=== PATIENT | female | born 1965 | race Caucasian/White ===

== ENCOUNTER 2021-11-18 13:18 | Emergency (ER) | payer OTHER, SELFPAY ==
[2021-11-18 13:39] VITALS: BP 120/73; PULSE 67; RESP 16; TEMP 36.1; O2SAT 98; BMI 40.8
--- NOTE | 2021-11-18 13:59 | DI.RAD.S_ITS ---
PROCEDURE: XR LUMBAR SPINE 2-3V INDICATIONS: fall monday TECHNIQUE: 2 views of the lumbar spine were acquired. COMPARISON: None. FINDINGS: Bones: 5 wzp-[id number]-yuvcfct vertebrae are present. There is 4.5 mm anterolisthesis of L4 on L5. Degenerative endplate changes and bilateral facet arthropathy throughout lumbar spine is seen. No vertebral body compression fractures. No suspicious bony lesions. Soft tissues: Overlying bowel gas pattern is normal. No suspicious soft tissue calcifications. IMPRESSION: Grade 1 anterolisthesis of L4 on L5. No acute compression fracture. Degenerative disc disease throughout lower thoracic and lumbar spine. Dictated by: Ray Dasilva M.D. on 11/18/2021 at 14:46 Approved by: Ray Dasilva M.D. on 11/18/2021 at 14:50
--- NOTE | 2021-11-18 13:59 | DI.RAD.S_ITS ---
PROCEDURE: XR PELVIS 1-2V INDICATIONS: fall monday TECHNIQUE: 1 view(s) of the pelvis acquired. COMPARISON: None. FINDINGS: Bones: No fractures or dislocations. Osteoarthritic changes throughout bony pelvis is seen. No evidence of avascular necrosis of femoral head. No suspicious bony lesions. Soft tissues: Visualized bowel gas pattern is normal. No suspicious soft tissue calcifications. IMPRESSION: No acute pelvic fracture or dislocation. Osteoarthritis throughout bony pelvis. Dictated by: Ray Dasilva M.D. on 11/18/2021 at 14:46 Approved by: Ray Dasilva M.D. on 11/18/2021 at 14:46
--- NOTE | 2021-11-18 15:43 | ED_ITS ---
HPI - Fall <Brendon Byrd PA-C - Last Filed: 11/18/21 16:50> General Chief Complaint: Fall Stated Complaint: Fell backwards- hit head, shoulder, buttocks Time Seen by Provider: 11/18/21 15:37 History of Present Illness HPI Narrative: This is a 56-year-old female presents to the emergency department due to a head injury as well as a buttock injury 1 week ago. Patient states that she was lifting something up when the wooden pallets not causing her to fall on her buttocks and hit her head on the cement. Reports a loss of consciousness. Patient states that ?words seem fuzzy? as well as mild nausea over the last week. She reports primarily buttock and lumbar pain. Related Data Allergies Allergy/AdvReac Type Severity Reaction Status Date / Time ciprofloxacin Allergy Hives Verified 11/18/21 13:51 Penicillins Allergy Hives Verified 11/18/21 13:51 latex AdvReac Rash Verified 11/18/21 13:51 Review of Systems <Brendon Byrd PA-C - Last Filed: 11/18/21 16:50> Review of Systems Narrative: GENERAL: Denies chills, fatigue, malaise, fever, sweats. HEENT: Denies sinus pain, ear pain, sore throat, difficulty swallowing, dizziness. RESPIRATORY: Denies dyspnea, cough, wheezing, hemoptysis, sputum. CARDIOVASCULAR: Denies chest pain, palpitations, orthopnea, edema, GASTROINTESTINAL: Reports nausea, denies vomiting, abdominal pain, diarrhea, constipation, melena. : Denies dysuria, frequency, incontinence, hematuria, urinary retention. MUSCULOSKELETAL: Lumbar and buttock pain SKIN: Denies rash, skin lesions, or other NEUROLOGIC: Denies weakness, headache, numbness, change in speech, confusion, seizures, incoordination. PSYCHIATRIC: No concerning psychosocial issues. 12 point review of systems is negative except for those stated above Patient History <JM Gallegos Last Filed: 11/18/21 16:50> Social History Smoking Status: Former smoker Smoking Status: Former smoker alcohol intake frequency: a few times a week Alcohol type: wine Substance Use Type: does not use Exam <JM Gallegos Last Filed: 11/18/21 16:50> Narrative Exam Narrative: GENERAL: Well-developed patient, in mild distress. HEAD: Atraumatic. Normocephalic. EYES: Pupils equal round and reactive. Extraocular motions intact. No scleral icterus. No injection or drainage. ENT: Nose without bleeding, purulent drainage. Throat without erythema, tonsill ar hypertrophy or exudate. Airway patent. NECK: Trachea midline. Non tender CARDIOVASCULAR: Regular rate and rhythm without murmurs, gallops, or rubs. RESPIRATORY: Clear to auscultation. Breath sounds equal bilaterally. No wheezes, rales, or rhonchi. GASTROINTESTINAL: Abdomen soft, non-tender, nondistended. EXTREMITIES: No edema or joint tenderness. BACK: Tenderness to palpation of bilateral buttocks as well as left lumbar paraspinal area NEURO: AOx3. Cranial nerves 2-12 intact SKIN: No rash or erythema of visible areas Initial Vital Signs Initial Vital Signs: Vital Signs Temperature 97.0 F L 11/18/21 13:39 Pulse Rate 67 11/18/21 13:39 Respiratory Rate 16 11/18/21 13:39 Blood Pressure 120/73 11/18/21 13:39 Pulse Oximetry 98 11/18/21 13:39 <Melissa Cobb DO - Last Filed: 11/18/21 20:26> Initial Vital Signs Initial Vital Signs: Vital Signs Temperature 97.0 F L 11/18/21 13:39 Pulse Rate 67 11/18/21 13:39 Respiratory Rate 16 11/18/21 13:39 Blood Pressure 120/73 11/18/21 13:39 Pulse Oximetry 98 11/18/21 13:39 Course <Brendon Byrd PA-C - Last Filed: 11/18/21 16:50> Orders Ordered: ED Orders 11/18/21 13:59 XR lumbar spine 2-3V Stat XR pelvis 1-2V Stat 11/18/21 15:56 CT head/brain wo con Stat Discontinued Medications Ketorolac Tromethamine (Ketorolac 30 Mg/Ml Vial) 15 mg IM NOW ONE Stop: 11/18/21 16:43 Last Admin: 11/18/21 16:53 Dose: 15 mg Documented by: BOBBYHOJUWAN Vital Signs Vital signs: Vital Signs - 8 hr 11/18/21 13:39 11/18/21 17:01 Temperature 97.0 F L Pulse Rate 67 65 Respiratory Rate 16 16 Blood Pressure 120/73 129/77 Pulse Oximetry 98 99 <Melissa Cobb DO - Last Filed: 11/18/21 20:26> Orders Ordered: ED Orders 11/18/21 13:59 XR lumbar spine 2-3V Stat XR pelvis 1-2V Stat 11/18/21 15:56 CT head/brain wo con Stat Discontinued Medications Ketorolac Tromethamine (Ketorolac 30 Mg/Ml Vial) 15 mg IM NOW ONE Stop: 11/18/21 16:43 Last Admin: 11/18/21 16:53 Dose: 15 mg Documented by: AUBREY Vital Signs Vital signs: Vital Signs - 8 hr 11/18/21 13:39 11/18/21 17:01 Temperature 97.0 F L Pulse Rate 67 65 Respiratory Rate 16 16 Blood Pressure 120/73 129/77 Pulse Oximetry 98 99 MDM - Fall <Brendon Byrd PA-C - Last Filed: 11/18/21 16:50> Imaging Data Lumbar x-ray: Radiologist's Impression: [address] [address] XRay Report Signed Patient: Alexandr Wall MR#: [id number] : 1965 Acct:[id number] Age/Sex: 56 / F Date of Service: 11/18/21 Loc: ED Accession Number: [id number] ?? Procedure: XR lumbar spine 2-3V Ordering Provider: Melissa Cobb D.O. PROCEDURE:? XR LUMBAR SPINE 2-3V ? INDICATIONS:? fall monday ? TECHNIQUE:? 2 views of the lumbar spine were acquired.? ? COMPARISON:? None. ? FINDINGS:? ? Bones:? 5 aaz-lzm-mkkxene vertebrae are present.? There is 4.5 mm anterolisthesis of L4 on L5.? Degenerative endplate changes and bilateral facet arthropathy throughout lumbar spine is seen.? No vertebral body compression fractures.? No suspicious bony lesions.? ? Soft tissues:? Overlying bowel gas pattern is normal.? No suspicious soft tissue calcifications.? ? ? IMPRESSION:? Grade 1 anterolisthesis of L4 on L5.? No acute compression fracture.? Degenerative disc disease throughout lower thoracic and lumbar spine. ? ? Dictated by: Ray Dasilva M.D. on 11/18/2021 at 14:46 ? ? Approved by: Ray Dasilva M.D. on 11/18/2021 at 14:50 ? pelvic x-ray: Radiologist's Impression: PROCEDURE: XR PELVIS 1-2V INDICATIONS: fall monday TECHNIQUE: 1 view(s) of the pelvis acquired. COMPARISON: None. FINDINGS: Bones: No fractures or dislocations. Osteoarthritic changes throughout bony pelvis is seen. No evidence of avascular necrosis of femoral head. No suspicious bony lesions. Soft tissues: Visualized bowel gas pattern is normal. No suspicious soft tissue calcifications. IMPRESSION: No acute pelvic fracture or dislocation. Osteoarthritis throughout bony pelvis. Dictated by: Ray Dasilva M.D. on 11/18/2021 at 14:46 Approved by: Ray Dasilva M.D. on 11/18/2021 at 14:46 CT scan - head: Radiologist's Impression: [address] [id number] Scan ReportSigned Patient: Alexandr Wall AMR#: [id number]: 1965Acct:[id number]/Sex: 56 / FDate of Service: 11/18/21Loc: EDAccession Number: [id number] Procedure: CT head/brain wo con Ordering Provider: Brendon Byrd P.A-C PROCEDURE: CT HEAD/BRAIN WO CON INDICATIONS: Head trauma and LOC TECHNIQUE: Noncontrast 4.5 mm thick angled axial sections acquired from the foramen magnum to the vertex, with coronal and sagittal reformats. For radiation dose reduction, the following was used: automated exposure control, adjustment of mA and/or kV according to patient size. COMPARISON: None. FINDINGS: Image quality: Excellent. CSF spaces: Basal cisterns are patent. No extra-axial fluid collections. The ventricles are symmetric in size and shape. Brain: No intracranial bleeds or masses. There is cerebral volume loss for age, with resultant ventricular and sulcal prominence. There are periventricular and deep white matter chronic small vessel ischemic changes. There is intracranial internal carotid artery atherosclerosis. Skull and face: Calvarium and visualized facial bones appear intact, without suspicious lesions. Sinuses: Visualized sinuses and mastoids are clear. IMPRESSION: No acute finding. Dictated by: Lv Saldana M.D. on 11/18/2021 at 16:24 Approved by: Lv Saldana M.D. on 11/18/2021 at 16:24 MDM Narrative Medical decision making narrative: 56-year-old female presents to the emergency department due to an injury to her head and buttocks and hips approximately a week ago. Head CT ordered due to loss of consciousness. Patient's x-rays were all negative for fracture and CT head was unremarkable. Suspect concussion and recommended conservative measures. Patient is 18 or older, presenting with minor blunt head trauma. Head CT (including cosigned orders) was ordered by an emergency manager long term care for trauma because the patient: sustained loss of consciousness Discharge Plan Departure Patient Disposition: Home Clinical Impression: Syncope, Concussion Instructions: DI for Concussion Activity Restrictions/Additional Instructions: Thank you for coming to the [facility] Emergency Department today. Your head CT showed no evidence of intracranial bleed. I suspect of a concussion. Please read the attached information. Your x-rays were also negative for any acute fractures. Please use ibuprofen Tylenol for the pain. I hope you feel better soon. Visit Report Forms: Patient Portal/API <Melissa Cobb DO - Last Filed: 11/18/21 20:26> Cosign ED Attending Sky Attestation: I was immediately available in the department for consultation. Documentation has been reviewed.
--- NOTE | 2021-11-18 15:56 | DI.CT.S_ITS ---
PROCEDURE: CT HEAD/BRAIN WO CON INDICATIONS: Head trauma and LOC TECHNIQUE: Noncontrast 4.5 mm thick angled axial sections acquired from the foramen magnum to the vertex, with coronal and sagittal reformats. For radiation dose reduction, the following was used: automated exposure control, adjustment of mA and/or kV according to patient size. COMPARISON: None. FINDINGS: Image quality: Excellent. CSF spaces: Basal cisterns are patent. No extra-axial fluid collections. The ventricles are symmetric in size and shape. Brain: No intracranial bleeds or masses. There is cerebral volume loss for age, with resultant ventricular and sulcal prominence. There are periventricular and deep white matter chronic small vessel ischemic changes. There is intracranial internal carotid artery atherosclerosis. Skull and face: Calvarium and visualized facial bones appear intact, without suspicious lesions. Sinuses: Visualized sinuses and mastoids are clear. IMPRESSION: No acute finding. Dictated by: Lv Saldana M.D. on 11/18/2021 at 16:24 Approved by: Lv Saldana M.D. on 11/18/2021 at 16:24
[2021-11-18] MEDS: KETOROLAC 30 MG/ML VIAL 15 MG IM (16:53)
[2021-11-18 17:01] VITALS: BP 129/77; PULSE 65; RESP 16; O2SAT 99
== END 2021-11-18 17:10 | disposition home or self-care (01) ==
PROVIDERS: Emergency Provider Physician Assistant Medical
DX: S06.0X1A Concussion with loss of consciousness of 30 minutes or less, initial encounter (principal); M54.50 Low back pain, unspecified; W01.198A Fall on same level from slipping, tripping and stumbling with subsequent striking against other object, initial encounter; Y99.0 Civilian activity done for income or pay
CPT/HCPCS: 70450; 72100; 72170; 96372; 99283; J1885

== ENCOUNTER → 2022-01-17 19:31 | Outpatient (CLI) | payer OTHER, SELFPAY ==
--- NOTE | 2022-01-17 | DI.MRI.S_ITS ---
PROCEDURE: MR LUMBAR SPINE WO CON INDICATIONS: Radiculopathy, lumbar region TECHNIQUE: Noncontrast sagittal T1 spin echo and T2 fast echo, sagittal STIR, and T2 fast spin echo through the lumbar spine. In cases with scoliosis, additional coronal T2 fast spin echo may be performed. COMPARISON: [facility], CR, XR LUMBAR SPINE 2-3V, 11/18/2021, 13:51. FINDINGS: Image quality: Excellent. Alignment and Curvature: There is minimal retrolisthesis seen at L1-L2. Bone Marrow: Marrow is of normal overall signal. Scattered foci are seen, which are hyperintense on T1-weighted and T2-weighted imaging, which are most consistent with benign vertebral body hemangiomas. No acute vertebral body compression fractures. Spinal Cord: Conus medullaris terminates at the L1 level. Visualized cord demonstrates normal signal and size. Paraspinous Soft Tissues: No paravertebral masses. T12-L1: Moderate loss of disc height is seen. Loss of disc signal is seen. Mild generalized disc bulge is seen. No significant neural foraminal or central canal narrowing can be seen. Note is made apparent perineural cysts involving the exit foramina at this level. L1-L2: Moderate loss of disc height is seen. Loss of disc signal is seen. Mild generalized disc bulge is seen. There is vesm-rr-foyuarnc left-sided and no right-sided neural foraminal narrowing. No significant central canal narrowing is seen. L2-L3: No significant abnormality is seen. L3-L4: The disc height and disc signal are relatively well preserved. Mild disc bulge is seen, which is eccentric to the right. Mild facet joint hypertrophy is seen. No significant neural foraminal or central canal narrowing can be seen. L4-L5: The disc height is well-preserved. Loss of disc signal is seen at this level. Moderate generalized disc bulge is seen. Moderate to prominent facet hypertrophy is seen. Mild bilateral neural foraminal narrowing is seen. Minimal central canal narrowing is seen. L5-S1: The disc height is well-preserved. Loss of disc signal is seen at this level. Mild generalized disc bulge is seen. There is a focal annular fissure seen posteriorly, as on series 4, image 7. Moderate facet joint hypertrophy is seen. No significant neural foraminal or central canal narrowing can be seen. IMPRESSION: Multiple levels of lumbar spine degenerative change are seen. There is an annular fissure seen posteriorly at the L5-S1 level. Incidental note is made of: Apparent perineural cysts at the exit foramina at the T12-L1 level. Dictated by: Franck Beatty M.D. on 01/18/2022 at 8:37 Approved by: Franck Beatty M.D. on 01/18/2022 at 8:41
== END ==
PROVIDERS: PCP Family Medicine
DX: M47.26 Other spondylosis with radiculopathy, lumbar region (principal); M47.27 Other spondylosis with radiculopathy, lumbosacral region; G96.191 Perineural cyst
CPT/HCPCS: 72148

== ENCOUNTER 2022-03-13 15:38 | Emergency (ER) | payer OTHER, SELFPAY ==
[2022-03-13 16:13] VITALS: BP 128/66; PULSE 74; RESP 19; TEMP 36.3; O2SAT 98; BMI 39.4
--- NOTE | 2022-03-13 16:21 | DI.RAD.S_ITS ---
PROCEDURE: XR RIBS LT MIN 3V W CXR1V INDICATIONS: fall TECHNIQUE: 4 views of the left ribs were acquired, along with a single view chest. COMPARISON: None. FINDINGS: Surgical changes and devices: A left abdominal laparoscopic anchors can be seen. Bones and chest wall: No fractures or dislocations. No suspicious bony lesions. Age-appropriate bony degenerative changes are seen. Overlying soft tissues appear unremarkable. Lungs and pleura: No pleural effusions or pneumothorax. Lungs appear clear. Mediastinum: Mediastinal contours appear normal. Heart size is normal. IMPRESSION: No displaced rib fracture is seen. No pneumothorax. Dictated by: Franck Beatty M.D. on 03/13/2022 at 15:44 Approved by: Franck Beatty M.D. on 03/13/2022 at 15:46
--- NOTE | 2022-03-13 19:49 | ED_ITS ---
HPI - Fall General Chief Complaint: Fall Stated Complaint: fell/left side/rib injury severe pain Time Seen by Provider: 03/13/22 19:36 Source: patient Mode of arrival: Family Vehicle Limitations: no limitations History of Present Illness HPI Narrative: 56-year-old female who has a history of rectal cancer is not currently undergoing any therapy is here for evaluation of left-sided chest discomfort. States she was on a hike. She lost her footing and fell forward. She landed with her left arm tucked up against the left side of her chest and her full body weight landed on this area. She immediately thought that she had fractured a rib. Has had pain with coughing and touching the area and breathing since then. She reports no other injuries from the fall. She went home and the symptoms worsened so she came to the emergency department for an x-ray. Related Data Previous Rx's Medication Instructions Recorded hydrocodone 5 mg-acetaminophen 325 1 tab PO Q4-6H PRN pain #10 tabs 03/13/22 mg tablet Allergies Allergy/AdvReac Type Severity Reaction Status Date / Time ciprofloxacin Allergy Hives Verified 03/13/22 16:13 Penicillins Allergy Hives Verified 03/13/22 16:13 latex AdvReac Rash Verified 03/13/22 16:13 Review of Systems Constitutional Constitutional: Reports system reviewed and no additional complaints, except as documented Cardiovascular Cardiovascular: Reports system reviewed and no additional complaints, except as documented Respiratory Respiratory: Reports system reviewed and no additional complaints, except as documented Gastrointestinal Gastrointestinal: Reports system reviewed and no additional complaints, except as documented Musculoskeletal Musculoskeletal: Reports system reviewed and no additional complaints, except as documented Integumentary/Breasts Skin/Breast: Reports system reviewed and no additional complaints, except as documented Hematologic/Lymphatic On Anticoagulants: No Patient History Medical History Rectal cancer Social History Smoking Status: Former smoker Smoking Status: Former smoker tobacco type: cigarettes alcohol intake frequency: a few times a week Alcohol type: wine Substance Use Type: does not use Exam Initial Vital Signs Initial Vital Signs: Vital Signs Temperature 97.3 F L 03/13/22 16:13 Pulse Rate 74 03/13/22 16:13 Respiratory Rate 19 03/13/22 16:13 Blood Pressure 128/66 03/13/22 16:13 Pulse Oximetry 98 03/13/22 16:13 Oxygen Delivery Method 03/13/22 16:13 HENNH Head: normal to inspection and normocephalic Chest Other: Discomfort left anterior chest wall under the left breast. No crepitus felt. Resp Effort & Inspection: normal respiratory effort Auscultation: clear to auscultation bilaterally Cardio Rate: regular rate Rhythm: regular rhythm Skin General: no rashes or lesions noted Neuro General: patient alert, patient awake and moves all extremities Extrem General: normal to inspection and capillary refill normal Psych Appearance: grossly normal and well kempt Course Orders Ordered: ED Orders 03/13/22 16:21 XR ribs LT min 3V w CXR1V Stat Discontinued Medications Hydrocodone Bitart/Acetaminophen (Hydrocodone/Acet 5/325 Tablet) 1 tab PO NOW ONE Stop: 03/13/22 19:50 Hydrocodone Bitart/Acetaminophen (Hydrocodone/Acet 5/325 Prepack) 1 bottle MISC SEEINSTR ONE Stop: 03/13/22 19:50 Vital Signs Vital signs: Vital Signs - 8 hr 03/13/22 16:13 Temperature 97.3 F L Pulse Rate 74 Respiratory Rate 19 Blood Pressure 128/66 Pulse Oximetry 98 Oxygen Delivery Method Room Air MDM - Fall Imaging Data rib x-ray: Radiologist's Impression: [address] [address] XRay Report Signed Patient: Alexandr Wall MR#: [id number] : 1965 Acct:[id number] Age/Sex: 56 / F Date of Service: 03/13/22 Loc: ED Accession Number: [id number] ?? Procedure: XR ribs LT min 3V w CXR1V Ordering Provider: Perla Robertson MD PROCEDURE:? XR RIBS LT MIN 3V W CXR1V ? INDICATIONS:? fall ? TECHNIQUE:? 4 views of the left ribs were acquired, along with a single view chest.? ? COMPARISON:? None. ? FINDINGS:? ? Surgical changes and devices:? A left abdominal laparoscopic anchors can be seen. ? Bones and chest wall:? No fractures or dislocations.? No suspicious bony lesions.? Age-appropriate bony degenerative changes are seen.? Overlying soft tissues ap pear unremarkable.? ? Lungs and pleura:? No pleural effusions or pneumothorax.? Lungs appear clear.? ? Mediastinum:? Mediastinal contours appear normal.? Heart size is normal.? IMPRESSION:? No displaced rib fracture is seen. ? No pneumothorax. ? ? Dictated by: Franck Beatty M.D. on 03/13/2022 at 15:44 ? ? Approved by: Franck Beatty M.D. on 03/13/2022 at 15:46 MDM Narrative Medical decision making narrative: Only injury from the event as discomfort to her left anterior chest wall. She did not hit her head. No loss of conscious. X-ray shows no displaced fracture. Informed the patient that she is either fractured her ribs and it is not apparent on the x-ray or she is just bruised her ribs. We discussed treatment for both of these. Was sent home with pain medication. She was given return precautions and follow-up instructions. She expressed understanding and agreement. Discharge Plan Departure Patient Disposition: Home Clinical Impression: Rib pain on left side Instructions: DI for Rib Contusion Activity Restrictions/Additional Instructions: Use the pain medication as needed. You may have to put pressure over the area when you cough or sneeze for the next several days. Be sure that your taking deep breaths regularly. Contact your primary doctor for follow-up. Return to the emergency department for any new or worsening symptoms. Prescriptions: New hydrocodone-acetaminophen 5-325 mg tablet 1 tab PO Q4-6H PRN (Reason: pain) Qty: 10 0RF Referrals: Kenny Mcmahan MD [Primary Care Provider] - Stand Alone Forms: Work Release Note
[2022-03-13] MEDS: HYDROCODONE/ACET 5/325 TABLET 1 TAB PO (19:57)
[2022-03-13] MEDS: HYDROCODONE/ACET 5/325 PREPACK 1 BOTTLE MISC (19:57)
== END 2022-03-13 20:04 | disposition home or self-care (01) ==
PROVIDERS: Emergency Provider Emergency Medicine; PCP Family Medicine
DX: R07.81 Pleurodynia (principal); W18.30XA Fall on same level, unspecified, initial encounter; Y93.01 Activity, walking, marching and hiking
CPT/HCPCS: 71101; 99283

== ENCOUNTER → 2022-03-21 15:44 | Outpatient (CLI) | payer OTHER, SELFPAY ==
--- NOTE | 2022-03-21 16:04 | DI.MRI.S_ITS ---
PROCEDURE: MR PELIS WO/W CON INDICATIONS: chronic low back pain, anal cancer TECHNIQUE: Coronal HASTE, sagittal T2 FSE, axial T1 FSE, axial and coronal nonbreath-hold T2 FSE. Axial dynamic VIBE during administration of contrast. Post-contrast axial and coronal VIBE/2-D FLASH with fat saturation from the iliac crests to the symphysis. 10 cc ProHance IV contrast. COMPARISON: [facility], CR, XR PELVIS 1-2V, 11/18/2021, 13:51. FINDINGS: Image quality: Excellent. Anus: There is T2 hypointense signal in the right semi circumferential anus, (/30). This is most consistent with fibrosis related to treatment change. No suspicious enhancement. Pelvic organ involvement: Genitourinary: None. Uterus is absent. Pelvic sidewall (obturator internus, piriformis, ischiococcygeus muscles): None. Pelvic floor (pubococcygeus, iliococcygeus, puborectalis, levator plate): None. Sacrum: None. Vessels (internal and external iliac arteries and veins): None. Nerves (lumbosacral nerve roots): None. Regional lymph nodes (mesorectal, inguinal, iliac): None. Other bowel and peritoneum: No pathologic free pelvic fluid. More proximal colon and small bowel loops are normal in caliber. A few colonic diverticuli. Bones: Marrow is normal in overall signal. 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 No suspicious enhancement. No adenopathy. Post hysterectomy. Dictated by: Jareth Gauthier M.D. on 03/21/2022 at 16:58 Approved by: Jareth Gauthier M.D. on 03/21/2022 at 17:07
== END ==
PROVIDERS: PCP Family Medicine; Referring Provider Neurological Surgery; Visit Provider Neurological Surgery
DX: C21.0 Malignant neoplasm of anus, unspecified (principal); M54.50 Low back pain, unspecified; G89.29 Other chronic pain; G57.93 Unspecified mononeuropathy of bilateral lower limbs; Z90.710 Acquired absence of both cervix and uterus
CPT/HCPCS: 72197; A9579